=== PATIENT | female | born 2000 | race African-American/Black ===

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

== ENCOUNTER 2018-03-31 18:47 | Observation (INO) | payer OTHER, SELFPAY ==
[2018-03-31] MEDS ORDERED: NALOXONE INJ 0.4 MG/1 ML VIAL (J2310) As Ordered ×3 (18:55)
[2018-03-31] MEDS: NS 1,000 ML IV ×3 (18:56)
[2018-03-31] MEDS: NALOXONE INJ 0.4 MG/1 ML VIAL (J2310) IV ×3 (18:58)
[2018-03-31 19:09] LABS: BASO % 0.5 % (0.0-1.0); EOS % 0.7 % (0.0-3.0); HEMATOCRIT 38.3 % (36.0-47.0); HEMOGLOBIN 12.8 g/dl (12.0-15.5); IMMATURE GRANULOCYTE % 0.2 % (0-3.0); LYMPH # 1.9 10^3/uL (1.5-6.5); LYMPH % 30.8 % (24.0-44.0); MEAN CORPUSCULAR HEMOGLOBIN 31.2 pg (27.0-33.0); MEAN CORPUSCULAR HGB CONC 33.4 g/dl (32.0-36.5); MEAN CORPUSCULAR VOLUME 93.4 fl (80.0-96.0); MONO # 0.4 10^3/uL (0.0-0.8); MONO % 6.7 % (0.0-5.0); NEUTROPHILS # 3.8 10^3/uL (1.8-7.7); NEUTROPHILS % 61.1 % (36.0-66.0); PLATELET COUNT, AUTOMATED 213 10^3/uL (150-450); RED CELL DISTRIBUTION WIDTH 12.1 % (11.5-14.5); WHITE BLOOD COUNT 6.1 10^3/uL (4.0-10.0)
[2018-03-31 19:28] LABS: CONTROL LINE HCG INT CTR LINE PRESENT; HCG, SERUM QUALITATIVE NEGATIVE (NEGATIVE)
[2018-03-31 19:37] LABS: ACETAMINOPHEN LEVEL < 2.0 UG/ML (10.0-30.0); ALBUMIN 3.7 GM/DL (3.2-5.2); ALBUMIN/GLOBULIN RATIO 1.32 (1.00-1.93); ALKALINE PHOSPHATASE 49 U/L (45-117); ALT/SGPT 19 U/L (12-78); ANION GAP 9 MEQ/L (8-16); AST/SGOT 12 U/L (7-37); BILIRUBIN,DIRECT 0.1 MG/DL (0.0-0.2); BILIRUBIN,TOTAL 0.4 MG/DL (0.2-1.0); BLOOD UREA NITROGEN 12 MG/DL (7-18); CALCIUM LEVEL 8.9 MG/DL (8.5-10.1); CARBON DIOXIDE LEVEL 26 MEQ/L (21-32); CHLORIDE LEVEL 108 MEQ/L (98-107); CREATININE FOR GFR 0.83 MG/DL (0.55-1.30); ETHYL ALCOHOL (ETHANOL) 0.004 % (0.000-0.010); GLUCOSE, FASTING 71 MG/DL (70-100); SALICYLATE LEVEL 1.8 MG/DL (5.0-30.0); SODIUM LEVEL 143 MEQ/L (136-145); THYROID STIMULATING HORMONE 0.699 uIU/ML (0.463-3.98); TOTAL PROTEIN 6.5 GM/DL (6.4-8.2)
[2018-03-31 20:13] LABS: AMPHETAMINES LEVEL URINE NEGATIVE (NEGATIVE); BARBITURATES URINE NEGATIVE (NEGATIVE); BENZODIAZEPINES URINE POSITIVE (NEGATIVE); CANNABINOIDS URINE POSITIVE (NEGATIVE); COCAINE METABOLITE URINE NEGATIVE (NEGATIVE); METHADONE URINE NEGATIVE (NEGATIVE); OPIATES URINE NEGATIVE (NEGATIVE); PHENCYCLIDINE URINE NEGATIVE (NEGATIVE)
[2018-04-01] MEDS: NS 1,000 ML IV ×12 (00:15→16:30)
[2018-04-01 07:44] LABS: TROPONIN I < 0.02 NG/ML (< 0.10)
[2018-04-01] MEDS: ENOXAPARIN 40 MG/0.4 ML SYRINGE (J1650) SC ×3 (09:18)
[2018-04-01] MEDS ORDERED: NICOTINE POLACRILEX 2 MG GUM PO ×3 (15:45)
[2018-04-01] MEDS: RAMELTEON 8 MG TAB (ROZEREM) PO ×3 (22:33)
[2018-04-02] MEDS: NS 1,000 ML IV ×3 (05:21)
[2018-04-02 06:00] LABS: HEMATOCRIT 35.1 % (36.0-47.0); HEMOGLOBIN 11.7 g/dl (12.0-15.5); MEAN CORPUSCULAR HEMOGLOBIN 31.4 pg (27.0-33.0); MEAN CORPUSCULAR HGB CONC 33.3 g/dl (32.0-36.5); MEAN CORPUSCULAR VOLUME 94.1 fl (80.0-96.0); PLATELET COUNT, AUTOMATED 177 10^3/uL (150-450); RED BLOOD COUNT 3.73 10^6/uL (4.00-5.40); RED CELL DISTRIBUTION WIDTH 11.9 % (11.5-14.5); WHITE BLOOD COUNT 4.9 10^3/uL (4.0-10.0)
[2018-04-02 06:23] LABS: ANION GAP 6 MEQ/L (8-16); BLOOD UREA NITROGEN 13 MG/DL (7-18); CALCIUM LEVEL 7.9 MG/DL (8.5-10.1); CARBON DIOXIDE LEVEL 24 MEQ/L (21-32); CHLORIDE LEVEL 112 MEQ/L (98-107); GLUCOSE, FASTING 80 MG/DL (70-100); POTASSIUM SERUM 3.6 MEQ/L (3.5-5.1); SODIUM LEVEL 142 MEQ/L (136-145)
[2018-04-02] MEDS: ENOXAPARIN 40 MG/0.4 ML SYRINGE (J1650) SC ×3 (08:23)
[2018-04-02] MEDS: RAMELTEON 8 MG TAB (ROZEREM) PO ×3 (21:36)
[2018-04-03 06:13] LABS: HEMATOCRIT 36.6 % (36.0-47.0); HEMOGLOBIN 12.9 g/dl (12.0-15.5); MEAN CORPUSCULAR HEMOGLOBIN 32.6 pg (27.0-33.0); MEAN CORPUSCULAR HGB CONC 35.2 g/dl (32.0-36.5); MEAN CORPUSCULAR VOLUME 92.4 fl (80.0-96.0); PLATELET COUNT, AUTOMATED 202 10^3/uL (150-450); RED BLOOD COUNT 3.96 10^6/uL (4.00-5.40); RED CELL DISTRIBUTION WIDTH 11.9 % (11.5-14.5); WHITE BLOOD COUNT 5.7 10^3/uL (4.0-10.0)
[2018-04-03 06:34] LABS: ANION GAP 8 MEQ/L (8-16); BLOOD UREA NITROGEN 10 MG/DL (7-18); CALCIUM LEVEL 8.6 MG/DL (8.5-10.1); CARBON DIOXIDE LEVEL 24 MEQ/L (21-32); CHLORIDE LEVEL 110 MEQ/L (98-107); CREATININE FOR GFR 0.71 MG/DL (0.55-1.30); GLUCOSE, FASTING 89 MG/DL (70-100); POTASSIUM SERUM 3.6 MEQ/L (3.5-5.1); SODIUM LEVEL 142 MEQ/L (136-145)
[2018-04-03] MEDS: ENOXAPARIN 40 MG/0.4 ML SYRINGE (J1650) SC ×3 (08:33)
== END 2018-04-03 14:30 ==
LOC: M ED INP 04-01 06:00 → M MSPAV 04-01 06:00 → M ED INP 18:49 → M MSPAV 04-01 06:00 → M ED 18:47
DX: T14.91XA Suicide attempt, initial encounter (principal); T42.4X2A Poisoning by benzodiazepines, intentional self-harm, initial encounter; F43.10 Post-traumatic stress disorder, unspecified; F32.9 Major depressive disorder, single episode, unspecified; F17.210 Nicotine dependence, cigarettes, uncomplicated; F12.10 Cannabis abuse, uncomplicated; F13.20 Sedative, hypnotic or anxiolytic dependence, uncomplicated; Y92.9 Unspecified place or not applicable
CPT/HCPCS: J2310

== ENCOUNTER 2018-04-03 14:28 | Inpatient (IN) | payer OTHER ==
[~2018-04-03 14:28] MED LIST: MAALOX 30 ML SUSP *UDC PO; MOM 30ML SUSPENSION UDC PO
[2018-04-03] MEDS: traZODone 50 MG TAB PO (22:52)
[2018-04-04] MEDS: PRAZOSIN 1 MG CAP PO (21:14)
[2018-04-04] MEDS: traZODone 50 MG TAB PO (21:14)
[2018-04-04] MEDS: SERTRALINE HCL 50 MG TAB PO (21:14)
[2018-04-05] MEDS: SERTRALINE HCL 25 MG TABLET PO (08:56)
[2018-04-05] MEDS ORDERED: SERTRALINE 100 MG TAB PO (09:00)
[2018-04-05] MEDS: ACETAMINOPHEN TAB 650MG DOSE (2X325MG) PO (15:18)
[2018-04-05] MEDS: traZODone 50 MG TAB PO (21:16)
[2018-04-05] MEDS: PRAZOSIN 1 MG CAP PO (21:17)
[2018-04-05] MEDS: QUEtiapine FUMARATE 50 MG TAB PO (23:21)
[2018-04-06] MEDS ORDERED: SERTRALINE HCL 50 MG TAB PO (09:00)
[2018-04-06] MEDS: SERTRALINE HCL 50 MG TAB PO (09:37)
[2018-04-06] MEDS: SERTRALINE 100 MG TAB PO (13:18)
[2018-04-06] MEDS: PILL CRUSHER/CUTTER 1 EACH XX (21:13)
[2018-04-06] MEDS: PRAZOSIN 1 MG CAP PO (21:15)
[2018-04-06] MEDS: traZODone 50 MG TAB PO (21:15)
[2018-04-07] MEDS: SERTRALINE 100 MG TAB PO (08:57)
[2018-04-07] MEDS: PILL CRUSHER/CUTTER 1 EACH XX (08:57)
[2018-04-07] MEDS ORDERED: SERTRALINE 100 MG TAB PO (09:00)
[2018-04-07] MEDS: hydrOXYzine 50 MG TAB PO (16:02)
[2018-04-07] MEDS: PRAZOSIN 1 MG CAP PO (21:43)
[2018-04-07] MEDS: traZODone 50 MG TAB PO (21:43)
[2018-04-08] MEDS: SERTRALINE 100 MG TAB PO (08:05)
[2018-04-08] MEDS: hydrOXYzine 50 MG TAB PO (14:09)
[2018-04-08] MEDS: PRAZOSIN 1 MG CAP PO (21:23)
[2018-04-09] MEDS: SERTRALINE 100 MG TAB PO (09:02)
[2018-04-09] MEDS: PILL CRUSHER/CUTTER 1 EACH XX (09:02)
== END 2018-04-09 12:00 | disposition home or self-care (01) | DRG 882 ==
LOC: M PSY 04-04 13:54
DX: F43.10 Post-traumatic stress disorder, unspecified (principal); F12.10 Cannabis abuse, uncomplicated; F17.210 Nicotine dependence, cigarettes, uncomplicated; Z91.5 Personal history of self-harm

== ENCOUNTER 2018-04-28 08:55 | Emergency (ER) | payer OTHER ==
[2018-04-28] MEDS: NS 1,000 ML IV (09:35)
[2018-04-28] MEDS: KETOROLAC 30 MG/ML VIAL (J1885) IV (09:35)
[2018-04-28 09:53] LABS: BASO % 0.5 % (0.0-1.0); EOS # 0.1 10^3/uL (0.0-0.50); EOS % 1.2 % (0.0-3.0); HEMATOCRIT 38.6 % (36.0-47.0); HEMOGLOBIN 12.8 g/dl (12.0-15.5); IMMATURE GRANULOCYTE % 0.5 % (0-3.0); LYMPH # 1.6 10^3/uL (1.5-6.5); LYMPH % 37.1 % (24.0-44.0); MEAN CORPUSCULAR HEMOGLOBIN 31.4 pg (27.0-33.0); MEAN CORPUSCULAR HGB CONC 33.2 g/dl (32.0-36.5); MEAN CORPUSCULAR VOLUME 94.6 fl (80.0-96.0); MONO # 0.3 10^3/uL (0.0-0.8); MONO % 7.4 % (0.0-5.0); NEUTROPHILS # 2.2 10^3/uL (1.8-7.7); NEUTROPHILS % 53.3 % (36.0-66.0); PLATELET COUNT, AUTOMATED 198 10^3/uL (150-450); RED BLOOD COUNT 4.08 10^6/uL (4.00-5.40); WHITE BLOOD COUNT 4.2 10^3/uL (4.0-10.0)
[2018-04-28 09:57] LABS: AMORPHOUS SEDIMENT RFX SMALL (NEGATIVE); KETONE, URINE AUTO RFX NEGATIVE (NEGATIVE); LEUKOCYTE ESTERASE UR AUTO RFX NEGATIVE (NEGATIVE); MUCUS, URINE RFX SMALL (NEGATIVE); NITRITE, URINE AUTO RFX NEGATIVE (NEGATIVE); RBC, URINE AUTO RFX 1 /HPF (0-3); SPECIFIC GRAVITY UR AUTO RFX 1.028 (1.002-1.035); SQUAM EPITHELIAL CELL UR AURFX 25 /HPF (0-6); WBC, URINE AUTO RFX 2 /HPF (0-3)
[2018-04-28 10:21] LABS: ALBUMIN 3.8 GM/DL (3.2-5.2); ALBUMIN/GLOBULIN RATIO 1.36 (1.00-1.93); ALKALINE PHOSPHATASE 48 U/L (45-117); ALT/SGPT 14 U/L (12-78); AMYLASE 61 U/L (25-115); ANION GAP 1 MEQ/L (8-16); AST/SGOT 10 U/L (7-37); BILIRUBIN,DIRECT < 0.1 MG/DL (0.0-0.2); BILIRUBIN,TOTAL 0.4 MG/DL (0.2-1.0); BLOOD UREA NITROGEN 12 MG/DL (7-18); CALCIUM LEVEL 8.7 MG/DL (8.5-10.1); CARBON DIOXIDE LEVEL 28 MEQ/L (21-32); CHLORIDE LEVEL 109 MEQ/L (98-107); CREATININE FOR GFR 0.64 MG/DL (0.55-1.30); GLUCOSE, FASTING 93 MG/DL (70-100); LIPASE 63 U/L (73-393); POTASSIUM SERUM 3.9 MEQ/L (3.5-5.1); SODIUM LEVEL 138 MEQ/L (136-145); TOTAL PROTEIN 6.6 GM/DL (6.4-8.2)
[2018-04-28 10:26] LABS: CONTROL LINE HCG INT CTR LINE PRESENT; HCG, SERUM QUALITATIVE NEGATIVE (NEGATIVE)
== END 2018-04-28 10:51 | disposition home or self-care (01) ==
LOC: M ED 08:55
DX: A08.4 Viral intestinal infection, unspecified (principal); F43.10 Post-traumatic stress disorder, unspecified; F17.210 Nicotine dependence, cigarettes, uncomplicated
CPT/HCPCS: J1885

== ENCOUNTER 2018-07-15 11:59 | Emergency (ER) | payer OTHER ==
[~2018-07-15] VITALS: Ht 165.1 cm; Wt 61.4 kg
[~2018-07-15 11:59] MED LIST changes: +ARIP5TA PO; +BENZ-52 PO; +EQUE100C PO; +FLAG500T PO; +HYDR50CA2 PO; +HYDRO50TAB PO; -MAALOX 30 ML SUSP *UDC PO; +MINI1CAP PO; -MOM 30ML SUSPENSION UDC PO; +NAPR-50 PO; +NAPR-885 PO; +PYRI1TAB5 PO; +RISP0.5T3 PO; +SERT-138 PO; +TRAZO50TA PO; +UNKNOWN ANTIBIOTIC
[2018-07-15 12:38] LABS: BASO % 0.5 % (0.0-1.0); EOS # 0.1 10^3/uL (0.0-0.50); EOS % 1.3 % (0.0-3.0); HEMATOCRIT 39.4 % (36.0-47.0); HEMOGLOBIN 13.3 g/dl (12.0-15.5); LYMPH # 1.7 10^3/uL (1.5-6.5); LYMPH % 42.5 % (24.0-44.0); MEAN CORPUSCULAR HEMOGLOBIN 31.1 pg (27.0-33.0); MEAN CORPUSCULAR HGB CONC 33.8 g/dl (32.0-36.5); MEAN CORPUSCULAR VOLUME 92.1 fl (80.0-96.0); MONO # 0.3 10^3/uL (0.0-0.8); MONO % 6.9 % (0.0-5.0); NEUTROPHILS # 1.9 10^3/uL (1.8-7.7); NEUTROPHILS % 48.5 % (36.0-66.0); PLATELET COUNT, AUTOMATED 246 10^3/uL (150-450); RED BLOOD COUNT 4.28 10^6/uL (4.00-5.40); WHITE BLOOD COUNT 3.9 10^3/uL (4.0-10.0)
[2018-07-15] MEDS ORDERED: KETOROLAC 30 MG/ML VIAL (J1885) IV ONE (13:15)
[2018-07-15] MEDS ORDERED: ONDANSETRON 4MG/2ML VIAL (J2405) IV ONE (13:15)
[2018-07-15 13:34] LABS: HCG, SERUM QUALITATIVE NEGATIVE (NEGATIVE)
[2018-07-15 13:37] LABS: ALT/SGPT 14 U/L (12-78); BILIRUBIN,DIRECT 0.1 MG/DL (0.0-0.2); BILIRUBIN,TOTAL 0.5 MG/DL (0.2-1.0); BLOOD UREA NITROGEN 12 MG/DL (7-18); CALCIUM LEVEL 9.2 MG/DL (8.5-10.1); CARBON DIOXIDE LEVEL 24 MEQ/L (21-32); CHLORIDE LEVEL 107 MEQ/L (98-107); CREATININE FOR GFR 0.69 MG/DL (0.55-1.30); GLUCOSE, FASTING 81 MG/DL (70-100); POTASSIUM SERUM 4.4 MEQ/L (3.5-5.1); SODIUM LEVEL 140 MEQ/L (136-145); TOTAL PROTEIN 6.9 GM/DL (6.4-8.2)
--- NOTE | 2018-07-15 14:40 | REP ---
PELVIC SONOGRAPHY: HISTORY: Heavy bleeding. Right lower quadrant pain. FINDINGS: Transabdominal and transvaginal scanning are performed. Urinary bladder ramirez are smooth. The bladder is incompletely filled. The uterine dimensions are normal at 7.3 x 3.2 x 4.8 cm. Endometrial echo 0.3 cm thick and centrally placed. No free fluid is seen. No focal uterine mass is observed. Normal ovaries are seen bilaterally. Right ovarian dimensions are 3.2 x 2.1 x 3.2 cm. The left ovary measures 2.2 x 1.6 x 1.6 cm. Doppler flow is normal to both ovaries. Resistive indices by Doppler are 0.46 on the right and 0.56 on the left. IMPRESSION: Normal pelvic sonography. Electronically Signed by Trae Livingston MD 07/15/2018 03:06 P
[2018-07-15] MEDS: GASTROGRAFIN SOLUTION 30ML PO SCH ×2 (15:15→15:45)
[2018-07-15 16:03] VITALS: BP 106/59
[2018-07-15] MEDS ORDERED: ISOVUE-370 76% 100ML VIAL (Q9967) As Ordered ONE (17:01)
--- NOTE | 2018-07-15 17:25 | REP ---
Clinical: Acute right lower quadrant pain. Technique: Axial contrast enhanced images from the lung bases to the pubic symphysis using oral (per protocol) and 100 ml Isovue 370 intravenous contrast material with coronal and sagittal re-formations. Findings: Lung bases are clear. Liver, spleen, pancreas, gallbladder, bilateral adrenal glands and kidneys are normal. The enteric system is without obstruction or acute inflammatory process. Normal terminal ileum and appendix identified in the right lower quadrant. Pelvis demonstrates collapsed normal bladder and age-appropriate uterus/adnexa. No free air. No free fluid. No adenopathy. Abdominal aorta and vasculature normal. Musculoskeletal structures are intact. Impression: Normal contrast enhanced CT of the abdomen and pelvis. No acute abdominopelvic pathology appreciated. Specifically, normal right lower quadrant and no evidence for ascites, focal inflammatory stranding or adenopathy. Electronically Signed by Santos Alvarado MD 07/15/2018 05:16 P
== END 2018-07-15 17:36 | disposition home or self-care (01) ==
LOC: M ED 11:59
DX: N94.5 Secondary dysmenorrhea (principal); F41.9 Anxiety disorder, unspecified; F32.9 Major depressive disorder, single episode, unspecified; F43.10 Post-traumatic stress disorder, unspecified; Z72.0 Tobacco use
CPT/HCPCS: 74177; 76830; 76856; 80048; 80076; 81001; 84703; 85025; 86850; 86900; 86901; 93976; 96374; 96375; 99284; J1885; J2405; Q9963; Q9967

== ENCOUNTER → 2020-08-08 | Outpatient (CLI) | payer OTHER ==
[~2020-08-08] MED LIST changes: +ARIP1TAB6 PO; -ARIP5TA PO; +HYDR1TAB33 PO; -HYDRO50TAB PO; -NAPR-50 PO; +NAPR-837 PO; +RISP-7 PO; -RISP0.5T3 PO; +TRAZ1TAB10 PO; -TRAZO50TA PO
[2020-08-08 11:51] LABS: HEMATOCRIT 39.2 % (36.0-47.0); HEMOGLOBIN 12.9 g/dl (12.0-15.5); MEAN CORPUSCULAR HEMOGLOBIN 30.4 pg (27.0-33.0); MEAN CORPUSCULAR HGB CONC 32.9 g/dl (32.0-36.5); MEAN CORPUSCULAR VOLUME 92.2 fl (80.0-96.0); PLATELET COUNT, AUTOMATED 235 10^3/uL (150-450); RED BLOOD COUNT 4.25 10^6/uL (4.00-5.40); WHITE BLOOD COUNT 3.3 10^3/uL (4.0-10.0)
[2020-08-08 11:52] LABS: APPEARANCE, URINE CLEAR (CLEAR); BACTERIA, URINE AUTO NEGATIVE (NEGATIVE); BILIRUBIN, URINE AUTO NEGATIVE (NEGATIVE); BLOOD, URINE BLOOD NEGATIVE (NEGATIVE); COLOR, URINE YELLOW (YELLOW); GLUCOSE, URINE (UA) AUTO NEGATIVE (NEGATIVE); KETONE, URINE AUTO NEGATIVE (NEGATIVE); LEUKOCYTE ESTERASE, URINE AUTO NEGATIVE (NEGATIVE); MUCUS, URINE SMALL (NEGATIVE); NITRITE, URINE AUTO NEGATIVE (NEGATIVE); PROTEIN, URINE AUTO NEGATIVE (NEGATIVE); RBC, URINE AUTO 0 /HPF (0-3); SPECIFIC GRAVITY URINE AUTO 1.015 (1.002-1.035); SQUAMOUS EPITHELIAL CELL UR AU 1 /HPF (0-6); UROBILINOGEN, URINE AUTO 0.2 mg/dL (0.0-2.0); WBC, URINE AUTO 1 /HPF (0-3)
[2020-08-08 12:21] LABS: HCG, SERUM QUALITATIVE NEGATIVE (NEGATIVE)
[2020-08-08 12:22] LABS: ALBUMIN 3.9 GM/DL (3.2-5.2); ALT/SGPT 20 U/L (12-78); BILIRUBIN,TOTAL 0.3 MG/DL (0.2-1.0); BLOOD UREA NITROGEN 13 MG/DL (7-18); CALCIUM LEVEL 8.9 MG/DL (8.5-10.1); CARBON DIOXIDE LEVEL 25 MEQ/L (21-32); CHLORIDE LEVEL 107 MEQ/L (98-107); CREATININE FOR GFR 0.79 MG/DL (0.55-1.30); GLOMERULAR FILTRATION RATE > 60.0 (>60); GLUCOSE, FASTING 92 MG/DL (70-100); POTASSIUM SERUM 3.5 MEQ/L (3.5-5.1); SODIUM LEVEL 141 MEQ/L (136-145); TOTAL PROTEIN 6.8 GM/DL (6.4-8.2)
[2020-08-09 11:43] LABS: HIV 1&2 SCREEN CENTAUR NEGATIVE (NEGATIVE)
== END ==
LOC: M LAB 11:00
PROVIDERS: ATTEND Pediatrics
DX: Z00.00 Encounter for general adult medical examination without abnormal findings (principal)